=== PATIENT | male | born 1965 | race Caucasian/White ===

== ENCOUNTER 2016-12-30 18:01 | Inpatient (IN) | payer OTHER ==
[~2016-12-30] VITALS: Ht 170.2 cm; Wt 70.0 kg
[2016-12-30] MEDS ORDERED: IOHEXOL 350 MG/ML 10 ML VIAL (for RAD DIAG) IVCONTRAST ONE (18:02)
[2016-12-30 18:05] VITALS: BP 185/77; PULSE 66; RESP 16; TEMP 98.5; O2SAT 98
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
[2016-12-30] MEDS ORDERED: TETANUS/DIPHTHERIA TOXOID ADULT 0.5 ML VIAL IM ONE (18:45)
[2016-12-30] MEDS ORDERED: ACETAMINOPHEN/HYDROcodone 325 MG/5 MG TAB PO ONE (18:45)
[2016-12-30] MEDS ORDERED: SODIUM CHLORIDE 0.9% FLUSH 10 ML FLUSH IV FLUSH PRN (19:00)
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
[2016-12-30] MEDS ORDERED: MORPHINE SULFATE 4 MG/ML INJ IV PUSH ONE (19:45)
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
[2016-12-30 20:29] LABS: AUTOMATED NEUTROPHIL # 16.6 TH/MM3 (1.8-7.7); BASOPHIL # 0.1 TH/MM3 (0-0.2); BASOPHIL % 0.3 % (0.0-2.0); EOSINOPHIL # 0.2 TH/MM3 (0-0.4); EOSINOPHIL % 0.8 % (0.0-4.0); HEMATOCRIT 41.9 % (39.0-51.0); HEMO FLAGS DIFF FINAL; LYMPH % 5.9 % (9.0-44.0); LYMPHOCYTE # 1.1 TH/MM3 (1.0-4.8); MEAN CELL VOLUME 89.6 FL (80.0-100.0); MEAN CORPUSCULAR HGB CONC 33.5 % (32.0-36.0); MONO % 5.5 % (0.0-8.0); NEUT % 87.5 % (16.0-70.0); PLATELET COUNT 197 TH/MM3 (150-450); RED BLOOD COUNT 4.67 MIL/MM3 (4.50-5.90); RED CELL DISTRIBUTION WIDTH 13.4 % (11.6-17.2)
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
[2016-12-30 20:45] LABS: ALT (GPT) 200 U/L (12-78)
[2016-12-30 20:47] LABS: ALKALINE PHOSPHATASE 120 U/L (45-117); TOTAL BILIRUBIN ADULT 0.5 MG/DL (0.2-1.0)
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
[2016-12-30 20:50] VITALS: BP 163/78; PULSE 59; RESP 18; O2SAT 99
[2016-12-30 20:52] LABS: ANION GAP 7 MEQ/L (5-15); APTT (PATIENT) 24.6 SEC (24.3-30.1); AST (GOT) 194 U/L (15-37); BICARBONATE 26.7 MEQ/L (21.0-32.0); BLOOD UREA NITROGEN 18 MG/DL (7-18); CHLORIDE 104 MEQ/L (98-107); GLOMERULAR FILTRATION RATE 73 ML/MIN (>89); PROTHROMBIN TIME - PATIENT 10.7 SEC (9.8-11.6); SODIUM (NA) 138 MEQ/L (136-145)
[2016-12-30 21:01] LABS: POTASSIUM 3.8 MEQ/L (3.5-5.1)
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
[2016-12-30] MEDS ORDERED: MORPHINE SULFATE 4 MG/ML INJ IV PUSH PRN (21:15)
[2016-12-30] MEDS ORDERED: GABAPENTIN 300 MG CAP PO ONE (22:15)
[2016-12-30] MEDS ORDERED: CHLORHEXIDINE GLUCONATE 2 % 1 PACK (2 CLOTHS) TOPICAL PRN (22:15)
[2016-12-30] MEDS ORDERED: METOPROLOL TARTRATE 25 MG TAB PO PRN (22:15)
[2016-12-30] MEDS ORDERED: INSULIN HUMAN REGULAR 1,000 UNITS/10 ML VIAL SQ PRN (22:15)
[2016-12-30] MEDS ORDERED: LACTATED RINGER'S 1000 ML IV PRN (22:15)
[2016-12-30] MEDS ORDERED: SODIUM CHLORID 0.9% 500 ML IV PRN (22:15)
[2016-12-30] MEDS ORDERED: POVIDONE IODINE 5% (ANTISEPSIS KIT) 4 APPLICATIONS EACH NARE PRN (22:15)
[2016-12-31] VITALS (8 sets, daily range): BP systolic 108–136; BP diastolic 54–80; PULSE 52–71; RESP 17–18; TEMP 96.2–100; O2SAT 96–99
[2016-12-31] MEDS ORDERED: ONDANSETRON HCL 4 MG/2 ML VIAL IV PUSH PRN ×2 (02:15→07:15)
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
[2016-12-31] MEDS ORDERED: SODIUM CHLORIDE 0.9% FLUSH 10 ML FLUSH IV FLUSH PRN (07:15)
[2016-12-31] MEDS ORDERED: ENALAPRILAT 1.25 MG/ML VIAL IV PUSH PRN (07:15)
[2016-12-31] MEDS ORDERED: MAGNESIUM HYDROXIDE SUSP 30 ML CUP PO PRN (07:15)
[2016-12-31] MEDS: FAMOTIDINE 20 MG TAB PO SCH ×2 (09:00→22:20)
[2016-12-31] MEDS: REMOVE OLD PATCH T-DERMAL SCH (09:00)
[2016-12-31] MEDS: DOCUSATE SODIUM 100 MG CAP PO SCH ×2 (09:00→22:20)
[2016-12-31] MEDS ORDERED: BACITRACIN TOP OINT 15 GM TUBE TOPICAL PRN (10:00)
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
[2016-12-31] MEDS ORDERED: SODIUM CHLOR 0.9% 250 ML INJ 250 ML ONE (10:55)
[2016-12-31] MEDS ORDERED: ceFAZolin 2 GM PREMIX 50 ML ONE (10:55)
[2016-12-31] MEDS ORDERED: GENTAMICIN SULFATE 80 MG/2 ML VIAL ONE (10:55)
[2016-12-31] MEDS ORDERED: VANCOMYCIN HCL 1000 MG VIAL ONE (10:55)
[2016-12-31] MEDS ORDERED: ACETAMINOPHEN 1000 MG/100 ML 100 ML IV ONE (11:02)
--- NOTE | 2016-12-31 11:25 | OTSOAPIP ---
PATIENT OFF THE FLOOR FOR SX Therapist: Reba Rosario OTR/L Signature on file
[2016-12-31] MEDS ORDERED: BUPIVACAINE/EPINEPHRINE 0.25% 50 ML VIAL ONE (11:27)
[2016-12-31] MEDS ORDERED: HYDR-3580 PO (12:02)
[2016-12-31] MEDS ORDERED: MORPHINE SULFATE 4 MG/ML INJ IV PUSH PRN (12:15)
--- NOTE | 2016-12-31 12:17 | PD.OP ---
cc: Kenny Sol MD Operative Report Date of Surgery: Dec 31, 2016 Preoperative Diagnosis: Displaced intra-articular left distal radius fracture Postoperative Diagnosis: Procedure: Open reduction internal fixation left distal radius Anesthesia: Gen. Surgeon: Kenny Sol Optician Apprentice Dispensing(s): CELESTINO Figueroa PA-C The surgical procedure was assisted by my physician advertising sales assistant. My P.A. presence was necessary throughout this case for the manipulation and positioning of the surgical extremity. My P.A. was assisting me throughout the duration of this procedure. The skill set of a physician advertising sales assistant was medically necessary to complete this procedure. During the surgical case the surgical assistant was working at the back table and the physician advertising sales assistant was directly assisting me. Operation and Findings: Patient was seen and evaluated preoperatively and found to have a displaced left distal radius fracture. Informed consent was obtained after detailed discussion of risk and benefits including bleeding, infection, injury to arteries, nerves, and blood vessels, weakness and numbness of hand, and tendon rupture. Informed consent was obtained. Patient received IV antibiotics prior to incision. Timeout procedure was performed. Operative extremity was prepped with alcohol followed by Hibiclens and draped usual sterile fashion. A standard volar approach to the distal radius was utilized. A 3 inch incision was made over the FCR tendon. Tendon sheath was opened. Pronator quadratus was elevated up. The fracture site was now visualized. The fracture did have intra-articular extension. Traction was applied. The articular surface was reduced. Fracture fragments were manipulated to achieve excellent reduction. K wires were used to hold provisional fixation. Fluoroscopy confirmed appropriate alignment of fracture. A ITSvariable angle distal radius plate was selected. Plate was provisionally fixed to bone with K wires. 2.7 and 2.4 cortical screws were used to compress plate to bone. Fluoroscopy confirmed appropriate alignment of fracture with well-placed hardware. Multiple 2.4 locking screws were now placed distally. Screws were predrilled and measured for appropriate length. 2 additional screws were placed into the shaft. K wires were removed. Final fluoroscopy revealed excellent of fracture with well- placed hardware. The wound was thoroughly irrigated with sterile saline. Subcutaneous tissue was closed with 3-0 Vicryl and skin was closed with 3-0 nylon. Sterile dressings were applied with Xeroform, 4 x 4, soft roll, and a well padded volar splint. Patient was awakened and transferred to recovery room in stable condition Kenny Sol MD Dec 31, 2016 12:17
--- NOTE | 2016-12-31 12:27 | RADRPT ---
EXAM DATE/TIME: 12/31/2016 12:07 [facility] COMPARISON: WRIST LEFT COMPLETE ([id number]), December 30, 2016, 19:13. INDICATIONS : Open reduction internal fixation left wrist. MEDICAL HISTORY : None. SURGICAL HISTORY : None. ENCOUNTER: Initial ACUITY: 1 day PAIN SCORE: Non-responsive. LOCATION: Left Wrist FINDINGS: 3 spot fluoroscopic images obtained in the operating room during a procedure demonstrates a volar dis kaila radial side plate with multiple interlocking screws. There is improved anatomic alignment. CONCLUSION: Improved alignment following ORIF of the distal radius fracture. Jose Rapp MD on December 31, 2016 at 12:24 Board Certified Radiologist. This report was verified electronically.
[2016-12-31] MEDS ORDERED: DO NOT ADM ANY ANTICOAGULANT DRUGS PRN (12:40)
[2016-12-31] MEDS: SODIUM CHLOR 0.9% 1000 ML INJ 1,000 ML IV SCH ×3 (13:42→22:26)
[2016-12-31] MEDS: LIDOCAINE HCL 5% PATCH T-DERMAL SCH (13:42)
[2016-12-31] MEDS: METHOCARBAMOL 500 MG TAB PO SCH ×2 (13:57→22:20)
[2016-12-31] MEDS: ACETAMINOPHEN/HYDROcodone 325 MG/7.5 MG TAB PO PRN (22:25)
[2017-01-01 00:10] VITALS: BP 148/67; PULSE 62; RESP 17; TEMP 97.6; O2SAT 97
[2017-01-01] MEDS: REMOVE OLD PATCH T-DERMAL SCH (01:45)
[2017-01-01] MEDS: METHOCARBAMOL 500 MG TAB PO SCH (06:00)
[2017-01-01 06:17] LABS: AUTOMATED NEUTROPHIL # 9.3 TH/MM3 (1.8-7.7); BASOPHIL % 0.2 % (0.0-2.0); EOSINOPHIL % 0.1 % (0.0-4.0); HEMATOCRIT 33.7 % (39.0-51.0); HEMO FLAGS DIFF FINAL; LYMPH % 9.4 % (9.0-44.0); LYMPHOCYTE # 1.1 TH/MM3 (1.0-4.8); MEAN CELL VOLUME 90.2 FL (80.0-100.0); MEAN CORPUSCULAR HEMOGLOBIN 30.9 PG (27.0-34.0); MEAN CORPUSCULAR HGB CONC 34.3 % (32.0-36.0); MONO % 8.1 % (0.0-8.0); NEUT % 82.2 % (16.0-70.0); PLATELET COUNT 148 TH/MM3 (150-450); RED BLOOD COUNT 3.74 MIL/MM3 (4.50-5.90); RED CELL DISTRIBUTION WIDTH 13.3 % (11.6-17.2); WHITE BLOOD COUNT 11.4 TH/MM3 (4.0-11.0)
--- NOTE | 2017-01-01 06:19 | RADRPT ---
EXAM DATE/TIME: 01/01/2017 05:37 [facility] COMPARISON: CHEST SINGLE AP, December 30, 2016, 19:06. INDICATIONS : Shortness of breath. MEDICAL HISTORY : None. SURGICAL HISTORY : None. ENCOUNTER: Subsequent ACUITY: 3 days PAIN SCORE: Non-responsive. LOCATION: Bilateral chest FINDINGS: A single view of the chest demonstrates the lungs to be symmetrically aerated without evidence of mas s, infiltrate or effusion. The cardiomediastinal contours are unremarkable. Osseous structures are intact. CONCLUSION: No acute disease. Jose Grullon MD on January 01, 2017 at 6:17 Board Certified Radiologist. This report was verified electronically.
--- NOTE | 2017-01-01 06:35 | PD.ORT.PN ---
Subjective Subjective Remarks Resting comfortably Objective Vitals Vital Signs Date Time Temp Pulse Resp B/P (MAP) Pulse Ox O2 Delivery O2 Flow Rate FiO2 01/01/17 00:10 97.6 62 17 148/67 (94) 97 12/31/16 19:03 97.4 55 17 109/54 (72) 97 12/31/16 17:50 97.1 64 18 114/63 (80) 97 12/31/16 16:05 99 21 12/31/16 15:51 97.1 52 17 120/66 (84) 98 12/31/16 13:25 97.9 52 18 100 Room Air 12/31/16 13:15 52 18 129/62 (84) 100 Room Air 12/31/16 13:00 59 18 126/68 (87) 100 Room Air 12/31/16 12:45 81 18 132/69 (90) 99 Room Air 12/31/16 12:40 97.9 77 18 135/70 (91) 97 Nasal Cannula 2 12/31/16 07:58 98.1 57 17 108/54 (72) 96 I/O 12/31/16 12/31/16 12/31/16 01/01/17 01/01/17 01/01/17 07:00 15:00 23:00 07:00 15:00 23:00 Intake Total 800 ml 860 ml 240 ml Output Total 20 ml 275 ml Balance 780 ml 585 ml 240 ml Intake Oral 360 ml 240 ml IV Total 500 ml Other 800 ml Output Urine Total 275 ml Estimated Blood Loss 20 ml # Voids 2 2 # Bowel Movements 0 0 Result Diagram: 01/01/17 0448 12/30/161947 Imaging Last 24 hours Impressions Abdomen/Pelvis CT 12/30/161951 Signed Impressions: Service Date/Time: Friday, December 30, 2016 20:21 - CONCLUSION: 1. 2 subtle right lower lateral rib fractures with no pneumothorax. 2. No evidence of visceral injury. 3. Moderate hepatic steatosis. Que Lopez MD Objective Remarks LUE: Splint clean dry and intact. intact. NVI. no pain in shoulder or elbow LLE: tender to palpation over medial knee. full motion of knee with mild discomfort. NVI Assessment & Plan Assessment and Plan 1) Left Distal Radius Fx ORIF POD 1 Nonweightbearing left upper extremity Maintain splint Sling when out of bed 2) Left Knee Contusion -WBAT Discharge to home today Follow-up with Dr. Sol or PA in 2 weeks Que Matthews Jr. Jan 01, 2017 06:35
[2017-01-01 06:55] LABS: ALKALINE PHOSPHATASE 88 U/L (45-117); ALT (GPT) 97 U/L (12-78); ANION GAP 8 MEQ/L (5-15); AST (GOT) 49 U/L (15-37); BICARBONATE 27.4 MEQ/L (21.0-32.0); BLOOD UREA NITROGEN 15 MG/DL (7-18); CHLORIDE 104 MEQ/L (98-107); GLOMERULAR FILTRATION RATE 96 ML/MIN (>89); POTASSIUM 4.2 MEQ/L (3.5-5.1); SODIUM (NA) 139 MEQ/L (136-145); TOTAL BILIRUBIN ADULT 0.4 MG/DL (0.2-1.0)
[2017-01-01 07:47] VITALS: BP 108/59; PULSE 60; RESP 17; TEMP 97.1; O2SAT 99
[2017-01-01] MEDS: LIDOCAINE HCL 5% PATCH T-DERMAL SCH (09:00)
[2017-01-01] MEDS: FAMOTIDINE 20 MG TAB PO SCH (09:11)
[2017-01-01] MEDS: DOCUSATE SODIUM 100 MG CAP PO SCH (09:11)
[2017-01-01] MEDS: ACETAMINOPHEN/HYDROcodone 325 MG/7.5 MG TAB PO PRN (09:14)
[2017-01-01 10:45] VITALS: O2SAT 97
[2017-01-01 11:43] VITALS: BP 134/66; PULSE 62; RESP 17; TEMP 96; O2SAT 97
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
== END 2017-01-01 13:24 | disposition home or self-care (01) | DRG 511 ==
LOC: NEPD 18:01 → NEDA 21:09 → N06B 21:47
PROVIDERS: ADMIT Surgery; ATTEND Surgery
PROC: 0PSJ04Z Reposition Left Radius with Internal Fixation Device, Open Approach (ICD-10-PCS; principal; 2016-12-31 11:15)
DX: S52.572A Other intraarticular fracture of lower end of left radius, initial encounter for closed fracture (principal); S22.41XA Multiple fractures of ribs, right side, initial encounter for closed fracture; S06.0X1A Concussion with loss of consciousness of 30 minutes or less, initial encounter; S00.81XA Abrasion of other part of head, initial encounter; S80.02XA Contusion of left knee, initial encounter; V13.4XXA Pedal cycle driver injured in collision with car, pick-up truck or van in traffic accident, initial encounter
CPT/HCPCS: 70450; 70486; 71010; 71260; 72125; 73100; 73110; 73130; 73140; 73600; 73630; 74177; 76000; 80053; 85025; 85610; 85730; 90471; 90714; 94150; 96374; J0131; J0690; J1580; J2270; J2405; J3370; J7030; J7050; J7120; Q9967